=== PATIENT | female | born 1965 | race Caucasian/White ===

== ENCOUNTER 2018-04-05 08:54 | Day surgery (SDC) | payer OTHER ==
[2018-04-05] MEDS ORDERED: MIDAZOLAM 1 MG/ML 2 ML INJ (10:16)
[2018-04-05] MEDS ORDERED: LIDOCAINE 2% (SDV) 5 ML INJ (10:16)
[2018-04-05] MEDS ORDERED: PROPOFOL 20 ML (10:16)
[2018-04-05] MEDS ORDERED: FENTAnyl 50 MCG/ML VIAL (10:16)
== END 2018-04-05 13:48 | disposition home or self-care (01) ==
LOC: GIL 08:54
DX: K31.7 Polyp of stomach and duodenum (principal); K29.70 Gastritis, unspecified, without bleeding; K21.0 Gastro-esophageal reflux disease with esophagitis; R19.5 Other fecal abnormalities; I10 Essential (primary) hypertension
CPT/HCPCS: 43239; 84703; 88305; 88312; 88313